=== PATIENT | female | born 1950 | race Caucasian/White ===

== ENCOUNTER 2016-08-21 06:18 | Inpatient (IN) | payer MEDICARE ==
[2016-08-21] VITALS (26 sets, daily range): BP systolic 101–148; BP diastolic 67–106; PULSE 78–100; RESP 12–20; O2SAT 88–98
[~2016-08-21] VITALS: Ht 157.5 cm; Wt 52.5 kg
--- NOTE | 2016-08-21 06:09 | ED.REPORT ---
HPI-Chest Pain 40 and Over Date of Service Aug 21, 2016 ED Provider: Mark Jay Patient is a 65 year old female with a cardiac history who presents to the ED via EMS complaining of sudden onset chest pain at 0515 this morning that woke her. Her pain radiates to her L arm. Associated symptoms include SOB, nausea, and vomiting (since resolved). Per daughter, she had a colonoscopy 4 days ago with a polypectomy. She was put on prednisone and reports that her first dose was taken yesterday. She was given Aspirin and Nitro x3 en route with only mild relief. She had not had her morning medications prior to arrival. Nursing Notes Stated Complaint: CHEST PAIN Nursing Notes Reviewed: Yes Allergies: Coded Allergies: No Known Allergies (Unverified Allergy, Unknown, 08/21/16) Scheduled Aspirin-Expunged Drug, Do Not Renew! (Aspirin-Expunged Drug, Do Not Renew!) 325 Mg Tablet 325 MG AD AM Atorvastatin-Expunged Drug, Do Not Renew! (Atorvastatin-Expunged Drug, Do Not Renew!) 40 Mg Tablet 40 MG PO DAILY Clopidogrel-Expunged Drug, Do Not Renew! (Plavix-Expunged Drug, Do Not Renew!) 75 Mg Tablet 75 MG PO DAILY Diltiazem-Expunged Drug, Do Not Renew! (Diltiazem CD-Expunged Drug, Do Not Renew !) 300 Mg Capsule 300 MG PO DAILY Miscellaneous Medications ([Vit D]) Fish Oil-Expunged Drug, Do Not Renew! (Fish Oil-Expunged Drug, Do Not Renew!) Cap General Time Seen by MD: 06:24 Chief Complaint Chest pain Hx Obtained From: Patient, EMS Arrived By: Ambulance Sudden in Onset?: Yes Onset Occurred: 1 - 4 hours ago Symptom Duration: Since onset Quality: Painful Radiation: : Arm left Severity: Current: Pain level 7 out of 10 Severity: Maximum: Pain level 10 out of 10 Recent Healthcare: Recent doctor visit Similar Sx Previous: Yes Past Medical History Past Medical History [place] x2 arthritus Reports: Asthma, COPD, Hypertension Past Surgical History Stents x2 Colonoscopy with polypectomy Smoking History Current Every Day Smoker Social History Alcohol Use: "Social" Ambulatory Status Independent Review of Systems Constitutional: Denies: Chills, Fever Respiratory: Reports: Shortness of breath Cardiovascular: Reports: Chest pain GI: Reports: Nausea, Vomiting Musculoskeletal: Reports: Extremity pain (L arm ) Neurologic: Denies: Change LOC, Headache, Lightheaded Complete sys rev & neg: except as marked. Physical Exam Initial Vital Signs Vital Signs (First) Date Time Temp Pulse Resp B/P Pulse Ox O2 Delivery O2 Flow Rate FiO2 08/21/16 06:23 36.2 100 20 148/106 95 Room Air 08/21/16 06:57 2 Initial VS: Reviewed Head / Eyes: Atraumatic, Normocephalic Neck: Full range of motion Skin: Warm, Dry Neurologic: Alert, Oriented General/Constitutional: Awake, Alert, Well developed Distress / Hydration: Positive: Distress moderate Wheezing / Retractions: Positive: Wheezing expiratory Cardiovascular: Regular rhythm, Heart sounds NL, Peripheral circulation NL Heart Rate / Rhythm: Positive: Tachycardia 2+ radial pulses Abdomen: Atraumatic, Soft, Non-tender No abdominal scar Neck: No JVD Interpretation & Diagnostics Lab Results Interpretation Result Diagram: 08/21/16 0625 08/21/16 0625 Test 08/21/16 06:25 White Blood Count 16.0th/mm3 (3.8-10.1) Red Blood Count 4.31mil/mm3 (3.90-5.20) Hemoglobin 15.5g/dL (12.0-15.6) Hematocrit 43.8% (35.0-46.0) Mean Corpuscular Volume 101.6fL (81-100) Mean Corpuscular Hemoglobin 36.0pg (27.0-35.0) Mean Corpuscular Hemoglobin Concent 35.4% (32.0-37.0) Red Cell Distribution Width 12.3% (12.3-15.4) Platelet Count 391bil/L (150-400) Neutrophils (%) (Auto) 67.2% (40-74) Lymphocytes (%) (Auto) 18.4% (14-46) Monocytes (%) (Auto) 11.7% (4-12) Eosinophils (%) (Auto) 2.0% (0-5) Basophils (%) (Auto) 0.4% (0-3) Prothrombin Time 9.5sec (8.1-12.5) Prothromb Time International Ratio 0.89ratio Activated Partial Thromboplast Time 22.5sec (22.8-33.0) Sodium Level 138mEq/L (134-144) Potassium Level 3.8mEq/L (3.5-5.2) Chloride Level 100mEq/L (97-108) Carbon Dioxide Level 23mmol/L (18-29) Blood Urea Nitrogen 8mg/dL (8-27) Creatinine 0.69mg/dL (0.57-1.00) Estimat Glomerular Filtration Rate 122mL/min (>59) Glucose Level 151mg/dL (60-99) Calcium Level 9.2mg/dL (8.5-10.1) Magnesium Level 2.0mg/dL (1.6-2.6) Total Bilirubin 0.6mg/dL (0.0-1.2) Aspartate Amino Transf (AST/SGOT) 22U/L (0-50) Alanine Aminotransferase (ALT/SGPT) 15U/L (0-32) Alkaline Phosphatase 90U/L (25-165) Troponin T 0.049ug/L (0.0-0.011) Total Protein 7.6g/dL (6.4-8.4) Albumin 4.2g/dL (3.4-5.0) ECG Interpretation ECG Interpretation: Sinus rate 96 inferior infarct, old anterior infarct, possibly acute Time: 06:24 Interpreted by: ED physician X-Ray Chest Interpretation Chest Xray Interpretation: no abnormalities View: Portable, 1 view Interpretation / Wet Read by: Wet read ED physician Re-Eval/Medical Decision Time of Eval: 06:30 Re-Evaluation/Progress Note: Discussed plan for admission. Patient understands and agrees with plan. Consultation : Referral / Consult Name: Noah Rutherford MD Consulted With: Cardiology Call Returned at: 06:30 Blueprint Assembler: Will see patient, Agrees with eval, Agrees with plan, Accepts admit Note: Discussed patient's case. Will see patient. Counseled Regarding: Diagnosis, Lab results, Need for admission Discharge & Departure Primary Impression: STEMI (ST elevation myocardial infarction) Disposition: ADMITTED TO HOSPITAL Referrals: Brielle Adler PA-C (PCP) Crit Care Except Billable Proc Time Spent: 30-74 minutes Services Performed: Patient management by me, Time spent at bedside, Reviewing test results Critical Care Notes: See MDM, STEMI, IV heparin, IV nitroglycerin, IV metoprolol Scribe Attestation Portions of this note were transcribed by Dinesh Padilla. I, Dr. Flores personally performed the history, physical exam and medical decision-making; I reviewed and confirmed the accuracy of the information in the transcribed note. Signed by: Dinesh Padilla 08/21/16, 0910 copies to: Brielle Adler PA-C, Timothy S DO Aug 21, 2016 06:09 DINESH PADILLA Aug 21, 2016 06:33
[~2016-08-21 06:18] MED LIST: ASPI-351 AD; CLOP75TA14 PO; FISH; Heparin 25,000 Unit/500 mL 0.45% NS Premix IV ONE; LIP40 PO; MeTOProlol 1 mg/mL 5 mL Inj ONE; Nitroglycerin 2% 1 Gm Ointment TOPICAL ONE; Nitroglycerin 50,000 mcg/250 mL D5W Premix IV ONE; VIT D PO; [UNRECOGNIZED DRUG - CODE] PO
[2016-08-21] MEDS ORDERED: Ondansetron 2 mg/mL 2 mL Inj ONE (06:19)
[2016-08-21] MEDS ORDERED: Heparin 5,000 Unit/mL Inj ONE (06:20)
[2016-08-21] MEDS ORDERED: NITROGLYCERIN SL ONE (06:20)
[2016-08-21] MEDS ORDERED: Heparin 1,000 Units/500 mL NS Premix IV ONE (06:28)
[2016-08-21] MEDS ORDERED: 0.9% Sodium Chloride 0 ML ONE (06:28)
[2016-08-21] MEDS ORDERED: Heparin 1,000 Unit/mL 10 mL Inj ONE (06:28)
[2016-08-21] MEDS ORDERED: Heparin 5,000 Units/500 mL NS Premix IV ONE (06:28)
[2016-08-21] MEDS ORDERED: Phenylephrine/NS-PF 100 mCg/mL 5 mL Syringe IVPUSH ONE (06:28)
[2016-08-21] MEDS ORDERED: Nitroglycerin 50,000 mcg/250 mL D5W Premix IV ONE (06:28)
[2016-08-21] MEDS ORDERED: Atropine 1 mg/10 mL (Code) Syringe ONE (06:28)
[2016-08-21 06:35] LABS: BASOPHILS % (AUTO) 0.4 % (0-3); MONOCYTES % (AUTO) 11.7 % (4-12); Mean Corpuscular Volume 101.6 fL (81-100); NEUTROPHILS % (AUTO) 67.2 % (40-74); Platelet Count 391 bil/L (150-400)
[2016-08-21 06:54] LABS: INR 0.89 ratio
[2016-08-21] MEDS ORDERED: fentaNYL-PF 50 mCg/mL 2 mL Inj ONE ×2 (06:59→08:55)
[2016-08-21 07:59] LABS: TROPONIN T 0.049 ug/L (0.0-0.011)
[2016-08-21] MEDS ORDERED: Furosemide 10 mg/mL 2 mL Inj ONE (08:39)
--- NOTE | 2016-08-21 09:09 | DRSVH ---
PROCEDURE: X-RAY CHEST ONE VIEW, PORTABLE ([id number]) INDICATIONS: STEMI TECHNIQUE: One view of the chest was acquired. COMPARISON: [facility], , CHEST 1VW (PORTABLE), 10/25/2010, 19:27. FINDINGS: Surgical changes and devices: None. Lungs and pleura: No pleural effusions or pneumothorax. Lungs are clear. Mediastinum: Mediastinal contours appear normal. Heart size is normal. Bones and chest wall: Convex-right scoliosis. No suspicious bony lesions. Overlying soft tissues ap pear unremarkable. IMPRESSION: No acute cardiopulmonary disease process. Dictated by: Melisa Ortiz MD, PhD on 08/21/2016 at 9:05 Approved by: Melisa Ortiz MD, PhD on 08/21/2016 at 9:05
[2016-08-21] MEDS ORDERED: 0.9% Sodium Chloride 1,000 ML IV PRN ×2 (09:45→20:35)
[2016-08-21] MEDS ORDERED: Ondansetron 2 mg/mL 2 mL Inj IVPUSH PRN ×2 (09:45→12:15)
[2016-08-21] MEDS ORDERED: 0.9% Sodium Chloride 250 ML IV PRN (09:45)
[2016-08-21] MEDS ORDERED: 0.9% Sodium Chloride 1,000 ML ONE (09:51)
[2016-08-21] MEDS ORDERED: ASPI-973 PO (10:06)
[2016-08-21] MEDS ORDERED: DILT300C50 PO (10:11)
[2016-08-21] MEDS ORDERED: LIP40 PO (10:11)
[2016-08-21] MEDS ORDERED: ALBU90AE IH (10:14)
[2016-08-21] MEDS ORDERED: ZLP10T PO (10:14)
[2016-08-21] MEDS ORDERED: BECL8.7A6 INHALATION (10:15)
[2016-08-21] MEDS ORDERED: TIOT18CA3 IH (10:17)
[2016-08-21] MEDS ORDERED: DULO30CA50 PO (10:17)
--- NOTE | 2016-08-21 12:00 | NUR ---
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 Sheath pulled at bedside, manual pressure held. R groin site is soft/nontender, no s/s of hematoma, pulses are equal and strong. Pt a/o x3, bedrest until 1530 per Cardiology. Pt on Nitro gtt r/t ongoing chest discomfort, MD aware, ECG obtained and reviewed by Cardiology. Pt reports hx of drinking several beers/day, no s/s of alcohol withdrawal noted at this time. Family at bedside, updated on condition/plan of care. Care ongoing.
[2016-08-21] MEDS ORDERED: 0.9% Sodium Chloride 1,000 ML IV SCH (12:14)
[2016-08-21] MEDS ORDERED: Senna-Docusate 8.6-50 mg Tablet PO PRN (12:15)
[2016-08-21] MEDS ORDERED: Polyethylene Glycol (PEG) 17 Gm Powder PO PRN (12:15)
[2016-08-21] MEDS ORDERED: Sodium Chloride LOK Flush 10 mL Syringe IVFLUSH PRN (12:25)
[2016-08-21] MEDS ORDERED: Atropine 1 mg/10 mL (Code) Syringe IVPUSH PRN (12:25)
--- NOTE | 2016-08-21 12:50 | CONS ---
[address] [address] CONSULTATION REPORT PATIENT: NIRANJAN BUSTOS : 1950 MR#: [id number] ADMIT: 08/21/2016 JOB ID: [id number] DATE OF CONSULTATION: Sunday, August 21, 2016 CONSULTING PHYSICIAN: Cardiology--Noah Rutherford MD. REQUESTING PHYSICIAN: Willis Burgos MD CARDIOLOGY CONSULTATION--INITIAL CRITICAL CARE EVALUATION(EMERGENCY DEPARTMENT): PROBLEM LIST: 1. ACS (acute coronary syndrome). a. STEMI (acute anterior myocardial infarction). 2. CAD (coronary artery disease). a. PCI (percutaneous coronary intervention)--LAD; remote past; probably in [place]. Long stented segment of Proximal and Mid LAD. b. PCI Mid LAD; October 2010 for ACS. Xience 2.75 x 8 mm stent placed at the distal edge of the prior stent. CAD Risk Factors: a. Hypertension. b. Hyperlipidemia--Status not available. c. No history of diabetes. d. Current cigarette smoking. e. Family history--Status not available. OTHER PROBLEMS: 1. "Severe depression." 2. COPD: Note recent exacerbation. Prednisone initiated two days prior to this admission. 3. Diarrhea: History of recent chronic diarrhea. Note associated colonoscopy recently with removal of polyp and pathology is not yet available. CHIEF COMPLAINT: 1. Chest pain. 2. STEMI. Anterior ST elevation on the ECG. HISTORY OF PRESENT ILLNESS: This 64-year-old woman presented to the emergency department early this morning by EMS 2 hours after the onset of severe retrosternal chest pressure "like an elephant." She is uncomfortable and not able to give much history. The daughter was able to supplement the history somewhat. The discomfort today is not associated with radiation or other associated symptoms. She is not short of breath. From a cardiac point of view I understand the patient has been without overt cardiac symptoms recently. She did have some chest discomfort that was not exertional, and was felt to be related to an exacerbation of her chronic obstructive pulmonary disease for which prednisone was initiated two days ago. She did have some cough but no fever or chills. In general she is not much active except with activities around the house; and with this she is limited by exertional dyspnea. She has not recently had exertional angina otherwise. I do not elicit a history suggestive of heart failure including nocturnal dyspnea or edema. She reports no history of arrhythmia, or arrhythmic symptoms such as tachy palpitations, presyncope, or syncope. Regarding other possible underlying vascular disease, there is no history of CVA or current symptoms of TIA. No apparent claudication. Regarding possible dual antiplatelet therapy, she reports no current bleeding symptoms, no anticipated upcoming surgery, and she thinks she would be reliable to take mandatory medicines if needed. ALLERGIES: No known drug allergies. She does not think she is allergic to x-ray dye or seafood fish or iodine. MEDICATIONS: 1. Beclomethasone inhaler. 2. Spiriva inhaler. 3. Aspirin 81 mg daily. 4. . 5. Fluoxetine. No statin; this may have been stopped because of her diarrhea. PAST SOCIAL HISTORY: As above; otherwise, she does not report other treated illnesses. REVIEW OF SYSTEMS: I questioned her in the emergent setting, and later her daughter, regarding a 13-point review of systems which is unremarkable, noncontributory, and negative except as noted including: No history of thyroid disorder. COPD: She has had asthma and prolonged bronchitis symptoms, but in the remote past. In general, she does not report frequent bronchitis or prolonged chest colds. Recent diarrhea but otherwise no history of GI disorder including hepatitis, jaundice, ulcers, and indigestion. PERSONAL AND SOCIAL HISTORY: Cigarettes: 1/3 pack a day currently, and she has smoked for as much as 50 years. Alcohol: "Alcoholic." Daughter says there were two beers on the kitchen counter in her house this morning. Other drugs: She had a roommate recently who used methamphetamine. The daughter thinks it is not excluded that she may have been exposed to methamphetamine. She lives in her own home with a roommate. FAMILY HISTORY: Noncontributory. PHYSICAL EXAMINATION: General appearance: Elderly-appearing woman who appears considerably older than her stated age. She is uncomfortable, with chest discomfort, and hyper reactive to any discomfort. Vital signs: Blood pressure 115/80, heart rate 75 and regular, in sinus rhythm on telemetry. Respiratory rate 20 and unlabored, with O2 saturation 95% on supplemental oxygen. Neurologic and mental status: No overt focal neurologic defect noted. She is alert, oriented, appropriate, and conversant. HEENT: PERRL. Conjunctivae pink. Sclerae not icteric. Mouth and mucous membranes intact. Neck: Carotid upstroke intact bilaterally, without bruit. Jugular venous pressure unremarkable examined supine. No palpable thyromegaly. No palpable cervical lymphadenopathy. Lungs: Diminished breath sounds bilaterally examined supine. No wheezes. Cardiac: Heart examination notable for S4. There is no loud murmur. Abdomen: Unremarkable abdominal examination. Without tenderness, mass, hepatosplenomegaly, or bruit of abdominal aortic aneurysm. Extremities: No edema. Pedal pulses are difficult to feel bilaterally, except the right dorsalis pedis is present softly. DIAGNOSTIC STUDIES: Electrocardiogram: The ECG is limited by marked artifact. There is ST elevation in the mid precordial leads V2 through V4. Chest x-ray: Chest x-ray not available for review. Report is unremarkable from a cardiac point of view. Laboratory: Laboratory not initially available. Later CBC includes WBC elevated at 16,000 with 67% neutrophils, as well as hemoglobin 15.5, hematocrit 43.8, and platelet count 291,000. INR 0.89. Chemistries include potassium 3.8, BUN 8, creatinine 0.69, glucose 151, magnesium 2.1. Unremarkable LFT. Elevated troponin 0.049 already. ASSESSMENT: I discussed my findings, impressions, and management considerations with the patient and her Daughter, as well as with the admitting Hospitalist Service, and Cardiology including: Acute coronary syndrome--ST-elevation myocardial infarction: Acute anterior myocardial infarction. She presents with severe atypical chest pain and abnormal ECG indicative of anterior myocardial infarction. I discussed the recommendation to proceed to emergent coronary angiogram and anticipated primary percutaneous coronary intervention for likely left anterior descending occlusion. She is otherwise clinically stable initially. RECOMMENDATION: 1. Coronary angiogram and treatment as needed including anticipated primary percutaneous coronary intervention--Emergent. 2. Echocardiogram. 3. Admit to the Hospitalist for management of comorbidities including apparent severe COPD with recent COPD exacerbation started on prednisone. 4. OMT. Guideline directed optimal medical therapy for her coronary disease including aspirin, anticipated Plavix, as well as beginning beta-logan later and consideration of MATHEUS inhibitors. Important to reinitiate statin. MTDD
--- NOTE | 2016-08-21 13:26 | CS94 ---
[address] [address] DIAGNOSTIC CARDIAC CATHETERIZATION PATIENT: NIRANJAN BUSTOS : 1950 MR#: [id number] ADMIT: 08/21/2016 JOB ID: [id number] PROCEDURE NOTE--CARDIAC CATHETERIZATION LABORATORY: DATE OF PROCEDURE: Sunday, August 21, 2016. MARINE WATER TENDER: Noah Rutherford MD PROCEDURES: 1. Coronary Angiogram--Emergent. 2. PERCUTANEOUS CORONARY INTERVENTION (PCI): a. PCI of Mid and Proximal LAD--Xience 2.5 x 38 mm ARELI; and Xience 2.75 x 12 mm ARELI(overlapping proximally). CLINICAL DETAILS: This 64-year-old woman with known coronary disease presented to the Emergency Department(ED) by EMS this 6 a.m. after 2 hours of severe retrosternal chest pressure. ECG showed anterior ST elevation in the mid precordial leads. Her prior known coronary disease comprises a remote Proximal LAD Stent that may have been done in [place], [place]. Then in 2010 she had a short stent placed at the distal edge of the previous stent. Coronary risk factors include continued cigarette smoking. PROCEDURAL DETAILS: I evaluated her emergently; and discussed with her the recommendation to proceed with emergent coronary angiogram, and anticipated primary PCI for Anterior STEMI. I discussed the procedure, including possible risks and complications expeditiously in the emergent setting with her; and also with her Daughter. They are aware that she has a life-threatening illness with expected benefit from the procedure and also possible multiple complications including bleeding, heart attack, stroke, , and Others. After questions and discussion, she signed informed consent to proceed. Prior to the catheterization she had been treated with Aspirin, Heparin bolus, and had been given Plavix 600 mg p.o. in the ED. CORONARY ANGIOGRAM: Arterial access was obtained without difficulty in the right common femoral artery using fluoroscopic localization over the femoral head and modified Seldinger technique to insert a 6-Australian 10 cm side-arm sheath. Catheters were advanced and exchanged over a long 0.035 inch J-tipped Guidewire. Marked tortuosity of the entire aorta was noted. First Right Coronary angiogram was obtained using a 6-Australian JR-4 diagnostic catheter; then Left Coronary ngiogram was done using a 6-Australian JL-4 guide catheter. LV not entered. PCI OF THE MID AND PROXIMAL LAD: The diagnostic images were reviewed; and decision is made to proceed with emergent primary PCI to revascularize the occluded Mid LAD (MAURICIO-0 flow), which is occluded in the previously stented segment. The 6-Australian JL-[address] was used for Intervention. The occlusion was crossed with a BMW Wire--0.014 inches x 190 cm--which was placed in the distal LAD. PREDILATATION: The LAD was opened with several inflations of a Trek Balloon-- 2.5 x 15 mm--inflated several times to a maximum 8 atmospheres across the initial site of occlusion, and in the subsequent visualized areas of severe stenosis. The artery was improved with flow in the LAD. STENTS: After the artery was opened, several areas of disease requiring treatment are seen, including at the distal stent edge and within the stent, and also a focal moderate lesion at the proximal edge of the initially placed long stent. I elected to treat the entire diseased area. A Xience ARELI (Drug-Eluting Stent)-- 2.5 x 38 mm--was inserted distally, and deployed at 18 atmospheres covering from distal to the previously placed stents into the long previously stented segment. Then a second Xience ARELI--2.75 x 12 mm--was deployed at 18 atmospheres , covering the lesion at the proximal edge of the previously placed stents, including into the proximal near-ostial LAD. POSTDILATATION: The entire stented segment was post dilated with a noncompliant Trek NC Balloon--2.75 x15 mm--inflated to 20 atmospheres several times within the length of the stented segment. Aliquots of NTG IC were used during the procedure as needed. Procedural anticoagulation was obtained with bolus Heparin to achieve a therapeutic ACT. There was a excellent final angiographic result with MAURICIO-3 flow restored; no residual lesions; and no angiographic complication evident. Procedure without difficulty. Patient tolerated procedure well. No complication. At the end of the procedure, the patient was very uncomfortable, including neck pain and back pain, and also some residual chest discomfort. She was monitored in the Catheterization Laboratory until it was clear that she was very stable. ECG was reassuring, showing resolution of ST elevation(Comment: Over time it became evident that her pain was caused by marked point tenderness on the chest wall at the site of the discomfort). A side-arm sheath angiogram showed unusual vascular anatomy, and peripheral vascular disease including a very high bifurcation of the common femoral artery, almost above the superior edge of the of the femoral head. Arterial access was in the profunda artery. There is disease in the SFA. There appear to be collaterals from superiorly as well. Arterial hemostasis is planned by manual closure to be done in the CCU. The patient was transferred stable and more comfortable from the Catheterization Laboratory to the CCU for ongoing care including by the admitting Hospitalist Service. I discussed the procedure, findings, and management considerations with the patient, as well as with her Daughter, and also with the Hospitalist Service, and Cardiology. FINDINGS: 1. LMCA: The Left Main Coronary Artery is a short vessel with no obstructive lesions. 2. LAD: The LAD is a moderate size transapical vessel. Initially the Mid LAD is occluded. There is a long previously stented segment from the Proximal LAD to past the first Diagonal which is a small vessel ( less than 2 mm). After the LAD is opened note there is a 60% focal lesion at the proximal stent edge of the long previously stented segment. There is at least moderate diffuse in-stent narrowing throughout the length of the stents. The point of occlusion is within stent. When the artery is opened there is severe disease from the 3rd diagonal (distal to the stented segment) back to the point of occlusion with 95% diffuse narrowing. The Distal LAD is intact, and would be a good target for bypass. Diagonal-1 is severely diseased with a severe focal ostial lesion and only MAURICIO-2 flow. It is a small vessel emanating from a segment with overlapping layers of stents. I elected not to try to preserve this vessel. It became occluded after insertion of the stent without any sequelae, chest pain, or ECG changes. It was seen to fill retrograde by the end of the procedure. 3. LCX: The left circumflex coronary artery is nondominant. Its distribution consists of one large OM branch; and there is no angiographic obstructive lesion. 4. RCA: Dominant. Moderate sized. No obstructive disease. CONCLUSIONS: 1. PCI: Two Xience ARELI placed to revascularize occluded culprit Mid LAD In-Stent stenosis. 2. Acute Coronary Syndrome (ACS): STEMI (ST-elevation myocardial infarction). 3. Coronary Artery Disease (CAD): Single-vessel CAD of the Proximal and Mid LAD with a long segment of Proximal and Mid LAD now stented for the 3rd time. RECOMMENDATIONS: 1. ECASA--Indefinitely. 2. Plavix. Plan Plavix if well tolerated for one year with ongoing cardiology follow-up. I discussed with the patient and Daughter not to stop Plavix for any reason without immediate Cardiology consultation. Strongly consider lifetime Plavix given the extensive Intervention on the LAD. 3. Echocardiogram. 4. Cigarette cessation discussed. 5. OMT--Optimal Medical Therapy: Guideline directed optimal medical therapy. 6. Note Peripheral vascular disease (PVD). Would assess the question raised regarding peripheral vascular disease of the right lower extremity. MTDD
--- NOTE | 2016-08-21 13:27 | DRSVH ---
[facility] [address] [place] [address] Echocardiogram Report Name: NIRANJAN BUSTOS Tate e: 08/21/2016 Height: 61 in Hospital Exam Location: [facility] Weight: 117 lb Gender: Other BSA: 1. 5 m2 : 1950 Age: 65 yrs BP: 119 /77 mmHg Reason For Study: STEMI Ordering Physician: HOSPITALIST [facility] Performed By: Dolores Perry Referring Physician: CRIS SMITH Interpretation Summary 1) Normal left ventricular thickness and size with moderately reduced function (EF 35-40%). 2) Mid to distal septum, distal anterolateral wall, distal inferior wall, and distal anterior wall are akinetic. The apex is dyskinetic. 3) Normal right ventricular size and function. 4) No significant valvular abnormalities. 5) No prior Echo available for comparison. Procedure: A two-dimensional transthoracic echocardiogram with color flow and Doppler was performed in limited views only. Image quality is poor. The patient is supine during the test due to s/p heart cath. A contrast injection of Definity was performed to improve assessment of LV function. A total of 3 cc of contrast was given. Contrast was injected into an intravenous site in the left arm. There is no prior echocardiogram noted for this patient. The patient was in sinus during the exam. Left Ventricle: The left ventricle is normal in size. There is normal left ventricular wall thickness. Left ventricular systolic function is moderately reduced. The ejection fraction is estimated to be 35-40%. There is apical akinesis. Mid to distal septum, distal anterolateral wall, distal inferior wall, and distal anterior wall are akinetic. The apex is dyskinetic. Assessment of diastolic parameters indicates a relaxation abnormality of the left ventricle, consistent with normal filling pressures. Right Ventricle: The right ventricle is normal in size and function. Atria: Both atria are normal in size. There is no Doppler evidence for an atrial septal defect. Mitral Valve: The mitral valve is not well visualized. There is mild mitral regurgitation. Aortic Valve: The aortic valve is not well visualized. The aortic valve opens well. There is no aortic valve stenosis. There is trace aortic regurgitation. Tricuspid Valve: The tricuspid valve is not well visualized, but is grossly normal. There is moderate tricuspid regurgitation. The right ventricular systolic pressure is estimated at 26 mmHg assuming a right atrial pressure of 3 mm Hg. Pulmonic Valve: The pulmonic valve is not well visualized. There is no pulmonic valvular regurgitation. Great Vessels: The aortic root is normal size. The ascending aorta could not be visualized. The pulmonary artery is not well visualized, but is probably normal size. The IVC is of normal diameter and collapses greater than 50% with a sniff. This suggests a low right atrial pressure of 3 mm Hg. Pericardium/ Pleura There is no pericardial effusion. There is no pleural effusion. MMode/2D Measurements & Calculations LVIDd: 4.3 cm LA dimension: 3.2 cm RA long axis LVOT diam LVIDs: 2.9 cm FS: 31.7 % LA A2 area: 14.6 cm RA area Ao root diam IVSd: 0.72 cm LA A4 area: 15.7 cm : 3.1 cm LVPWd: 0.85 cm LA length (vol): 4.4 cm : 13.9 cm LA vol: 43.8 ml RA vol: 39.9 ml LA vol index RA : 26.5 mm2 IVC diam: 1.1 cm LV rosales. diameter/BSA LV sys. diameter/BSA (cm/m^2): 2.9 (cm/m^2): 1.9 Doppler Measurements & Calculations Ao V2 max MV E max tang MV E/A: 1.2 TR max tang : 79.5 cm/sec : 66.7 cm/sec Med Peak E' Tang : 239.0 cm/sec Ao max PG MV A max tang TR max PG : 2.5 mmHg : 57.7 cm/sec E/E' med: 13.8 : 22.8 mmHg Ao mean PG MV P1/2t: 49.6 msec Lat Peak E' Tang PA V2 max : 60.3 cm/sec LVOT Max Tang E/E' lat: 7.9 PA mean PG : 78.9 cm/sec Pulm A Revs Dur : 0.79 mmHg TAHIRA(I,D) PA Accel Time MV A dur: 0.10 sec : 0.11 sec : 2.6 cm2 sev ratio MV dec time MV P1/2t max tang Ao V2 mean LV V1 max PG : 0.17 sec : 62.5 cm/sec MVA(P1/2t): 4.4 cm2 Ao V2 VTI: 18.4 cm LV V1 VTI TAHIRA(V,D): 3.2 cm2 : 14.7 cm PA V2 mean TAHIRA indexed to BSA Pulm A Revs Dur - MV : 42.1 cm/sec (cm^2/m^2): 1.7 A Dur: 0.04 msec Reading Physician:01:27 PM
--- NOTE | 2016-08-21 14:52 | PCM.HPMED ---
Subjective Date of Service Aug 21, 2016 Primary Provider: Admitting Physician: Noah Rutherford MD Primary Care Physician: Brielle Adler PA-C Attending Physician: Noah Rutherford MD Admit Status: From the Emergency Department, Full Admit, Admit to Yellow Team, Critical Care Chief Complaint: Chest pain, STEMI. Status post stenting to the LAD. Postprocedure left chest pain History of Present Illness: This is a 65-year-old female brought to the ER by ambulance for acute crushing chest pain which awoke her at 5:15 AM. The pain did not radiate to the neck or arm. She had associated nausea vomiting dyspnea and diaphoresis. In the ED she was identified with an acute STEMI and taken to the mechanical shop laborer. Dr. Rutherford performed an acute coronary angiogram and ultimately stented a critical LAD lesion. Postprocedure she did have chest pain. This was more positional and did not increase with palpation. This was treated with Toradol. She denies a recent cough. Of note is a long history of alcohol abuse as well as smoking and tobacco dependence. She smokes 4-10 cigarettes a day. She notes about 4 beers in a days' time but not all days and denies a history of alcohol withdrawal symptoms. Review of Systems: She denies headache or hearing loss. No rhinorrhea cough or sore throat. No recent hemoptysis Her abdominal pain no nausea or vomiting. Also reviewed except as noted in history of present illness Allergies Coded Allergies: bupropion (Verified Allergy, Unknown, 08/21/16) Home Medications Aspirin-Expunged Drug, Do Not Renew! (Aspirin-Expunged Drug, Do Not Renew!) 325 Mg Tablet 325 MG AD AM Atorvastatin-Expunged Drug, Do Not Renew! (Atorvastatin-Expunged Drug, Do Not Renew!) 40 Mg Tablet 40 MG PO DAILY Clopidogrel-Expunged Drug, Do Not Renew! (Plavix-Expunged Drug, Do Not Renew!) 75 Mg Tablet 75 MG PO DAILY Diltiazem-Expunged Drug, Do Not Renew! (Diltiazem CD-Expunged Drug, Do Not Renew !) 300 Mg Capsule 300 MG PO DAILY PMH 1. CAD with history of PCI previously and 2 stents.. 2. Tobacco dependence, ongoing smoking. 3. Probable alcohol abuse syndrome 4. Recent colonoscopy with polypectomy. 5. COPD. Surgical History Coronary stenting 2, recent colonoscopy with polypectomy 4 days ago Family History Positive for CAD Social History Hx Alcohol Use: Yes Alcoholic Drinks Per Day: 3-4 beers per day most days Hx Substance Use: No Hx Tobacco Use: Yes Smoking Status: Current Every Day Smoker Living Arrangement: Alone Exam Vital Signs Vital Sign - Last Date Time Temp Pulse Resp B/P Pulse Ox O2 Delivery O2 Flow Rate FiO2 08/21/16 14:00 85 14 120/78 08/21/16 13:00 36.7 97 Nasal Cannula 2.00 Exam Alert oriented 3, no distress. Fluent speech. Normal skeletal. Normal nose and ears Anicteric sclerae, symmetric pupils. Oropharynx unremarkable no droop. Neck supple. Normal thyroid. No adenopathy. Lungs are clear, normal effort. Heart is regular without murmur gallop or rub. Abdomen is soft nondistended focal tenderness guarding or rebound. Extremities are free of edema. Radial and pedal pulses. Joints not swollen or deformed. Skin free of rashes, lesions or petechiae. Cranial nerves are intact. Lab and Diagnostics Result Diagram: 08/21/1662408/21/16624 X-Rays, CTs and MRIs Chest x-ray is unremarkable 12-lead ECG Normal sinus rhythm with inferior ST segments in the lateral leads, time is 10: 24 AM Cardiac Echo Impressions LVEF of 3035%, with a flat apical distal wall. Assessment & Plan 1. STEMI. POA. The patient has undergone stenting of the LAD. Discussed the case with Dr. Rutherford. She will be placed on dual antiplatelet therapy, beta blockade as well as statin therapy. 2. Chest wall pain. POA. Feels this does not represent postprocedure ischemia. We will treat supportively with analgesics. He has requested a dose of Toradol. 3. Tobacco dependence. POA. Patient declines a nicotine patch. 4. Possible alcohol abuse syndrome. POA. Denies withdrawal symptoms in the past. Follow clinically. 5. Recent colonoscopy and polypectomy. POA. Stable. Follow for clinical evidence of rectal bleeding although there is no history of. Patient is full resuscitation discussed with patient today Length of stay is over 2 nights, inpatient status Pain Evaluation: Adequate Pain Control Resuscitation Status: CPR: Attempt Resuscitation Time spent 45 minutes Willis Burgos MD Aug 21, 2016 14:52
[2016-08-21] MEDS ORDERED: Ketorolac 15 mg/mL Inj IVPUSH ONE (17:00)
--- NOTE | 2016-08-21 18:29 | NUR ---
DOWNGRADE TO PCC Patient's vitals stable since arrival to unit, although she continues to report chest heaviness/pressure, no relief w/ Nitro gtt. Dr. Burgos and Dr. Rutherford aware of this ongoing discomfort, Toradol ordered for one-time dose, and patient reports some relief. Orders received for patient to downgrade to PCC status w/ tele. Groin site is C/D/I, no drainage noted, no bruising or hematoma present. Patient does report tenderness distal to site, but only w/ palpation. Will continue to monitor rhythm, vitals and groin site.
[2016-08-21] MEDS ORDERED: Albuterol 2.5 mg/3 mL Inhalation Solution NEB PRN (20:40)
[2016-08-21] MEDS: Heparin 5,000 Unit/mL Inj SUBQ SCH (20:54)
[2016-08-21] MEDS: MethylprednisoLONE Sodium Succinate 62.5 mg/mL 2 mL Inj IVPUSH SCH (20:56)
[2016-08-21] MEDS: Albuterol-Ipratropium 3 mL Inhalation Solution NEB SCH (21:36)
[2016-08-22] VITALS (12 sets, daily range): BP systolic 101–123; BP diastolic 50–83; PULSE 71–112; RESP 16–19; O2SAT 88–96
[2016-08-22] MEDS: Albuterol-Ipratropium 3 mL Inhalation Solution NEB SCH ×6 (00:30→21:17)
--- NOTE | 2016-08-22 00:35 | NUR ---
[id number] pt assessment done, orders received from telecommunication lines repairer and hospitalist, report given to pcc rn, pt on tele to [facility] room 2030, pt a/o times three, anxious, villagomez, right groin cdi, no bleeding, no hematoma, pulses present, good uop per f/c, pt ate approx 50 % of her dinner, pt states she felt hungry but then could not eat much, orders from hospitalist to keep ns at 50ml/hr, urine spec sent to lab for tox screen, denies n/v, bt present, abd round/snt, no bm, ls- insp and exp wheezes t/o, hob up, resp rate= 20, sats on two liters nc=94%, md aware of pts home meds of prednisone and inhalers, not sure of prednisone dose, hospitalist ordered inhalers and solumedrol and ambien for anxiety, tele- sr, bp stable, afebrile, pt c/o midsternal chest pressure that appeared to get worse when pt leaned forward for ausculation of lung sounds, pt c/o increase in discomfort when pressure applied to sternal area, appears musculoskeletal, telecommunication lines repairer aware and states ngt gtt does not need to continue but to check with hospitalist, hospitalist aware of assessment and what telecommunication lines repairer states and ntg gtt discontinued, pt transferred to [facility] tele, room 2030 at approx 2030,
[2016-08-22 05:28] LABS: BASOPHILS % (AUTO) 0.1 % (0-3); EOSINOPHILS % (AUTO) 0 % (0-5); MONOCYTES % (AUTO) 1.1 % (4-12); Mean Corpuscular Hemoglobin 34.9 pg (27.0-35.0); Mean Corpuscular Volume 103.5 fL (81-100); NEUTROPHILS % (AUTO) 93.5 % (40-74); Platelet Count 295 bil/L (150-400)
[2016-08-22] MEDS: MethylprednisoLONE Sodium Succinate 62.5 mg/mL 2 mL Inj IVPUSH SCH ×3 (05:44→21:37)
[2016-08-22] MEDS: Alum-Mag Hydrox-Simeth 30 mL Suspension PO PRN ×2 (05:47→20:15)
[2016-08-22] MEDS: Heparin 5,000 Unit/mL Inj SUBQ SCH ×2 (09:15→21:39)
[2016-08-22] MEDS: Tiotropium 18mcg/Cap 5 Capsule Inhaler Kit INHALATION SCH ×2 (13:00→13:23)
[2016-08-22] MEDS: Fluticasone 100 mCg Inhaler INHALATION SCH ×2 (13:23→21:39)
[2016-08-22] MEDS: DULoxetine 30 mg DR Capsule PO SCH (13:39)
--- NOTE | 2016-08-22 14:32 | PCM.PNMED ---
Subjective Date of Service Aug 22, 2016 Subjective She is doing fairly well today. Her left upper thorax pain which is mostly positional is improved dramatically. Her dyspnea is about the same. She does have a lot of wheezing and was placed on Cytomel Medrol yesterday. She has a dry cough. No nausea vomiting or abdominal pain. No diaphoresis or leg edema Exam Vital Signs Vital Sign - Last Date Time Temp Pulse Resp B/P Pulse Ox O2 Delivery O2 Flow Rate FiO2 08/22/16 12:45 36.7 111 16 107/65 Room Air 08/22/16 11:37 93 08/22/16 07:40 1.00 Intake and Output 08/21/16 08/21/16 08/22/16 Cumulative From/Thru 15:00 23:00 07:00 08/21/16 06:23 - 08/22/16 06:33 Intake Total 1124 ml 720 ml 1844 ml Output Total 1700 ml 300 ml 2000 ml Balance -576 ml 420 ml -156 ml Intake Oral 540 ml 600 ml 1140 ml IV Total 584 ml 120 ml 704 ml Output Urine Total 1700 ml 300 ml 2000 ml # Bowel Movements 0 0 Exam Alert oriented 3 no distress. Fluent speech. Normal skull Anicteric sclerae, pink neck supple normal JVP Lungs scattered rhonchi and 2/4 breath sounds and scattered rhonchi and expiratory wheezing and prolonged expiratory phase Heart is regular without murmur gallop or rub Abdomen soft nondistended. Extremities are free of edema. Good pedal pulses. IVs and Medications Medications Reviewed: Medications were reviewed in detail Lab and Diagnostics Result Diagram: 08/22/16 0510 08/22/16 0510 X-Rays, CTs and MRIs Chest x-ray is unremarkable 12-lead ECG Normal sinus rhythm with inferior ST segments in the lateral leads, time is 10: 24 AM Cardiac Echo Impressions LVEF of 3035%, with a flat apical distal wall. Assessment & Plan 1. STEMI. POA. The patient has undergone stenting of the LAD. Discussed the case with Dr. Rutherford. She will be placed on dual antiplatelet therapy, beta blockade as well as statin therapy. No changes to her medical regimen at this time. 2. Chest wall pain. POA. Feels this does not represent postprocedure ischemia. We will treat supportively with analgesics. This is improved substantially. 3. Tobacco dependence. POA. Patient declines a nicotine patch. 4. Possible alcohol abuse syndrome. POA. Denies withdrawal symptoms in the past. Follow clinically. No evidence of withdrawal issues. 5. Recent colonoscopy and polypectomy. POA. Stable. Follow for clinical evidence of rectal bleeding although there is no history of. 6. Possible acute COPD exacerbation. POA. Will continue Solu-Medrol and bronchodilator treatments for an additional day. 7. Mild debilitation. POA. Physical therapy evaluation today. Patient is full resuscitation discussed with patient today Length of stay is over 2 nights, inpatient status Resuscitation Status: CPR: Attempt Resuscitation Time spent 30 minutes Willis Burgos MD Aug 22, 2016 14:32
--- NOTE | 2016-08-22 15:24 | NUR ---
Evaluation completed. Please go to "Notes" then click on "Assessments and Notes" (bottom left corner of screen). Then select appropriate discipline tab on top of screen.
--- NOTE | 2016-08-22 17:00 | NUR ---
Social Work Note: Initial Assessment Data& Assessment: EMR reviewed. SW met with pt at bedside to discuss discharge planning, SW role explained. Nadia Pedro is a 65 year old female admitted on 08/21/2016 for Chest pain. Pt has Medicare insurance coverage and sees Brielle Adler for primary care. Pt lives in [place] alone and is independent at baseline. Pt denies any HH or SNF hx. Pt denies any DME use. Pt denies LTC insurance or VA benefits. Pt drives at baseline. Pt has DPOA paperwork completed, SW requested copy of paperwork for her chart. Pt confirmed one of her children will be able to transport her home when medically ready. PT has cleared pt to go home, no needs. Pt expressed a lot of frustration regarding her hospital stay and requested information on who she should contact. SW provided pt with number to patient relations. Pt denies any other needs at this time. SW to continue to follow if any needs arise. Plan: Anticipated discharge home via POV when medically ready. Pt family to transport home at discharge. Pt denies any other needs at this time. SW to continue to follow if any needs arise. CESAR Kramer Addendum: 08/22/16 at 1707 by TWYLA BARRETO Amended: Links added.
--- NOTE | 2016-08-22 19:19 | NUR ---
Anxiety Pt. states having high anxiety with new diagnosis and being in the hospital. Other precipitating factors are family and pets at home. Pt. has had no pain, Pt. ambulated with PT today in the afternoon and denied SOB. Pt. complains of tightness in chest but not r/t cardiac. Pt, was given 2 Tylenol for headache, right groin where LAD was placed has slight bruising but no draining and no pain, no redness, soft on palpation.
--- NOTE | 2016-08-22 22:12 | PROG NOTE ---
[address] [address] PROGRESS NOTE PATIENT: NIRANJAN BUSTOS : 1950 MR#: [id number] ADMIT: 08/21/2016 JOB ID: [id number] DATE: 08/22/2016. CARDIOLOGY PROGRESS NOTE--FOLLOW-UP INPATIENT CONSULTATION: EVALUATING PHYSICIAN: Cardiology: Noah Rutherford MD. PROBLEMS: 1. ACS--STEMI 2. CAD 3. Post PCI of Mid LAD in-stent occlusion (day two). 4. COPD exacerbation, moderately severe. SUBJECTIVE: I saw Ms. Bustos on Cardiology rounds this morning, now 24 hours after she presented with severe chest discomfort, STEMI on ECG; and she had primary percutaneous intervention of the occluded Mid LAD, which was a late in-stent stenosis. Today, this 65-year-old woman tells me she is doing well, and she feels much better. She is not having any specific problems, but has not been out of bed yet. She has had no cardiac symptoms except she continues to have the left upper retrosternal costochondral junction point tenderness that reproduces the chest pain she has been having. It has improved in the past day but still present. She is not being bothered by much shortness of breath despite the severity of her underlying COPD exacerbation on Exam. OBJECTIVE: EXAMINATION: Vital signs stable. Cardiac examination is unremarkable. Lungs: Her lung examination is remarkable for diffuse moderate to severe inspiratory and expiratory wheezes with diminished breath sounds overall. This is quite impressive pulmonary abnormality.At the same time, she is breathing only slightly heavily and does not look uncomfortable or significantly tachypneic. Extremities: The right lower extremity is intact at the catheterization site with a small ecchymosis; but no hematoma, pulsatile mass or bruit, and the pulse is intact, as it is distally in the right foot at the dorsalis pedis with perfusion capillary refill intact and the foot is warm--overall entirely satisfactory. ECG : This morning's EKG is likewise unremarkable. She has Q-waves V1 through V4 that are pre-existing; and likely related to her prior anterior infarct. The current acute changes are resolved. Chest X-Ray: Initially, the chest x-ray film was not available, but today I went to Radiology and was able to see the film. It is consistent with some COPD with large lung volumes and diffusely increased lung markings, but no evident pneumonia; and no heart failure. Laboratory: Labs are intact including creatinine is stable after contrast media. Echocardiogram: The echocardiogram shows moderately decreased global LV function with EF 35% to 40% and there are wall motion defects consistent with mid LAD occlusion both remote and recent, including anterior, apical, and distal inferior. Regarding her smoking and consideration of cor pulmonale, she does not have pulmonary hypertension, and her RV is intact; but she does have moderate TR. ASSESSMENT: 1. ST-elevation myocardial infarction; percutaneous coronary intervention; coronary artery disease: a. My impression is that overall she is stable and doing well from a cardiac point of view. I discussed the findings, impressions and ongoing management considerations of her and with the Hospitalist Team. b. Ongoing follow-up has confirmed our clinical impression that her severe persisting chest discomfort after the Intervention is related to the exquisite costochondral tenderness, but it is much improved. c. From a cardiac point of view, I discussed with her the critical importance of mandatory dual platelet anticoagulation and not to miss Plavix for any reason without immediate Cardiology consultation; and optimal medical therapy; and ongoing Cardiology follow-up, as well follow-up with her primary physician. 2. Chronic obstructive pulmonary disease: Although she seems moderately well compensated at the moment her respiratory status is impressive regarding COPD exacerbation with bronchospasm. I noted that she is on several inhalers and prednisone currently. RECOMMENDATIONS: 1. Resume ambulation carefully with the Nurse. She seems motivated. 2. OMT--Optimal medical therapy, including aspirin, Plavix, statin, beta-logan, and can add MATHEUS inhibitor in a staged manner. Let us know if metoprolol--now 12.5 mg b.i.d--; and reassess if it is felt to be problematic with her wheezing. Otherwise, it is important for her cardiac status a year after an infarct. 3. Your plan to optimize the COPD exacerbation and its physiologic stress; as well as ongoing consideration of the possibility of alcohol withdrawal. 4. We have discussed smoking cessation several times. LISSETTE
--- NOTE | 2016-08-22 22:17 | NUR ---
DCd leahy DCd pts leahy around 2034 pt able to void a small amount (150cc) around 2139.
[2016-08-23] VITALS (9 sets, daily range): BP systolic 96–110; BP diastolic 63–74; PULSE 87–112; RESP 18–20; O2SAT 93–100
[2016-08-23] MEDS: Albuterol-Ipratropium 3 mL Inhalation Solution NEB SCH ×5 (00:30→16:30)
--- NOTE | 2016-08-23 05:38 | NUR ---
no chest pain pt denies any CP, a pain in her right upper chest seems to be worse with coughing, pt declines any need for medication. up to [facility] independently, tele -ST 90-110s
[2016-08-23] MEDS: DULoxetine 30 mg DR Capsule PO SCH (08:22)
[2016-08-23] MEDS: Fluticasone 100 mCg Inhaler INHALATION SCH (08:23)
[2016-08-23] MEDS: Heparin 5,000 Unit/mL Inj SUBQ SCH (08:24)
[2016-08-23] MEDS: MethylprednisoLONE Sodium Succinate 62.5 mg/mL 2 mL Inj IVPUSH SCH (08:35)
--- NOTE | 2016-08-23 12:41 | PCM.DIMED ---
Discharge Instructions Date of Service Aug 23, 2016 Dates of Hospitalization Aug 21, 2016 at 09:39 Discharge Diagnosis Discharge Diagnosis 1. STEMI (heart attack) with LAD stenting 2. COPD exacerbation 3. Tobacco dependence 4. Muscular chest wall pain Diet Heart Healthy Activity Limited until seen by PCP Patient Instructions Cardiology in 2 weeks at [facility] PCP in 2 weeks Follow-up Provider: Brielle Adler PA-C Follow-up with PCP in: 2 weeks Willis Burgos MD Aug 23, 2016 12:41
[2016-08-23] MEDS ORDERED: METO25TA6 PO (12:46)
[2016-08-23] MEDS ORDERED: PRED50TA PO (12:46)
[2016-08-23] MEDS ORDERED: ASPI81TA3 PO (12:46)
[2016-08-23] MEDS ORDERED: CLOP75TA28 PO (12:46)
[2016-08-23] MEDS ORDERED: LORA-302 PO (12:46)
[2016-08-23] MEDS ORDERED: HYDR-4003 PO (12:46)
--- NOTE | 2016-08-23 14:38 | PCM.DC.MED ---
Discharge Summary Date of Service Aug 23, 2016 Dates of Hospitalization Date of Hospital Admission Aug 21, 2016 at 09:39 Date of Discharge: Aug 23, 2016 Providers: Admitting Physician: Noah Rutherford MD Primary Care Physician: Brielle Adler PA-C Attending Physician: Noah Rutherford MD Diagnosis at Time of Discharge Diagnosis at Time of Discharge 1. STEMI (heart attack) with LAD stenting 2. COPD exacerbation 3. Tobacco dependence 4. Muscular chest wall pain Consultations Interventional cardiology, Dr Rutherford. Procedures XRay, CTs & MRIs Chest x-ray is unremarkable ECG 12 Lead Normal sinus rhythm with inferior ST segments in the lateral leads, time is 10: 24 AM Cardiac Echo Impression LVEF of 3035%, with a flat apical distal wall. Invasive Procedures Cardiac cath on day of admit with stenting of LAD. See procedure note for further details. Brief History This is a 65-year-old female brought to the ER by ambulance for acute crushing chest pain which awoke her at 5:15 AM. The pain did not radiate to the neck or arm. She had associated nausea vomiting dyspnea and diaphoresis. In the ED she was identified with an acute STEMI and taken to the laboratory animal caretaker. Dr. Rutherford performed an acute coronary angiogram and ultimately stented a critical LAD lesion. Postprocedure she did have chest pain. This was more positional and did not increase with palpation. This was treated with Toradol. She denies a recent cough. Of note is a long history of alcohol abuse as well as smoking and tobacco dependence. She smokes 4-10 cigarettes a day. She notes about 4 beers in a days' time but not all days and denies a history of alcohol withdrawal symptoms. Hospital Course 1. STEMI. POA. The patient has undergone stenting of the LAD. Discussed the case with Dr. Rutherford. She will be placed on dual antiplatelet therapy, beta blockade as well as statin therapy. No changes to her medical regimen at this time. 2. Chest wall pain. POA. Feels this does not represent postprocedure ischemia. We will treat supportively with analgesics. This is improved substantially. 3. Tobacco dependence. POA. Patient declines a nicotine patch. 4. Possible alcohol abuse syndrome. POA. Denies withdrawal symptoms in the past. Follow clinically. No evidence of withdrawal issues. 5. Recent colonoscopy and polypectomy. POA. Stable. Follow for clinical evidence of rectal bleeding although there is no history of. 6. Possible acute COPD exacerbation. POA. Will continue Solu-Medrol and bronchodilator treatments for an additional day. 7. Mild debilitation. POA. Physical therapy evaluation today. Patient is full resuscitation discussed with patient today Length of stay is over 2 nights, inpatient status Hospital course: pt was admitted to [facility] as a STEMI and underwent cath and PCI of LAD. She had a moderate COPD exacerbation POA and was treated with bronchodilators and steroids with improvement of symptoms. She had minor muscular chest pain post procedure which increase with cough and palpation and resolved. She also had mild anxiety. She felt able to return home on the day of discharge. Exam Vital Signs (Last) Date Time Temp Pulse Resp B/P Pulse Ox O2 Delivery O2 Flow Rate FiO2 08/23/16 13:27 87 18 94 Room Air 08/23/16 08:26 36.5 110/72 08/22/16 07:40 1.00 Exam NAD, alert . Fluent speech Lungs clear except minor expiratory wheezing. CV RRR Abd Soft, NT No edema. Groin site okay. Test 08/21/16 06:25 08/21/16 20:27 08/22/16 05:10 08/23/16 04:44 Prothrombin Time 9.5sec (8.1-12.5) Prothromb Time International Ratio 0.89ratio Activated Partial Thromboplast Time 22.5sec (22.8-33.0) Magnesium Level 2.0mg/dL (1.6-2.6) Troponin T 0.049ug/L (0.0-0.011) Hold Urine Received (Received) Urine Opiates Screen Positive Urine Methadone Screen Negative Urine Barbiturates Screen Negative Urine Amphetamines Screen Negative Urine Benzodiazepines Screen Positive Urine Cocaine Metabolite Screen Negative Urine Cannabinoids Screen Negative White Blood Count 11.2th/mm3 (3.8-10.1) Red Blood Count 3.95mil/mm3 (3.90-5.20) Hemoglobin 13.8g/dL (12.0-15.6) Hematocrit 40.9% (35.0-46.0) Mean Corpuscular Volume 103.5fL (81-100) Mean Corpuscular Hemoglobin 34.9pg (27.0-35.0) Mean Corpuscular Hemoglobin Concent 33.7% (32.0-37.0) Red Cell Distribution Width 12.2% (12.3-15.4) Platelet Count 295bil/L (150-400) Neutrophils (%) (Auto) 93.5% (40-74) Lymphocytes (%) (Auto) 5.1% (14-46) Monocytes (%) (Auto) 1.1% (4-12) Eosinophils (%) (Auto) 0% (0-5) Basophils (%) (Auto) 0.1% (0-3) Total Bilirubin 0.8mg/dL (0.0-1.2) Aspartate Amino Transf (AST/SGOT) 259U/L (0-50) Alanine Aminotransferase (ALT/SGPT) 59U/L (0-32) Alkaline Phosphatase 85U/L (25-165) Total Protein 6.3g/dL (6.4-8.4) Albumin 3.6g/dL (3.4-5.0) Sodium Level 141mEq/L (134-144) Potassium Level 4.6mEq/L (3.5-5.2) Chloride Level 103mEq/L (97-108) Carbon Dioxide Level 25mmol/L (18-29) Blood Urea Nitrogen 12mg/dL (8-27) Creatinine 0.55mg/dL (0.57-1.00) Estimat Glomerular Filtration Rate 159mL/min (>59) Glucose Level 160mg/dL (60-99) Calcium Level 9.1mg/dL (8.5-10.1) Discharge Medications Discharge Medications ([Vit D]) 2,000 IU PO DAILY (Reported) Aspirin (Aspirin) 81 Mg Tablet 81 MG PO DAILY (Reported) Aspirin Chew (Aspirin Chew) 81 Mg Chew 81 MG PO DAILY Prescribed by: WILLIS LUJAN MD Atorvastatin (Lipitor) 40 Mg Tablet 40 MG PO HS (Reported) Beclomethasone Dipropionate (Qvar) 8.7 Gm Aer.w.adap 1 PUFF INHALATION BID ( Reported) Clopidogrel (Clopidogrel) 75 Mg Tablet 75 MG PO DAILY Prescribed by: WILLIS LUJAN MD Diltiazem ER (Diltiazem ER) 300 Mg Cap.er.24h 300 MG PO DAILY (Reported) Duloxetine (Duloxetine) 30 Mg Capsule.dr 30 MG PO DAILY (Reported) Metoprolol Tartrate (Metoprolol Tartrate) 25 Mg Tablet 12.5 MG PO BID Prescribed by: WILLIS LUJAN MD Prednisone (PredniSONE) 50 Mg Tablet 40 MG PO DAILY Prescribed by: WILLIS LUJAN MD Tiotropium Roberta (Spiriva) 18 Mcg Cap.w.dev 18 MCG IH DAILY (Reported) As needed Albuterol Sulfate (Proair Respiclick) 90 Mcg Aer.pow.ba 90 MCG IH PRN For Shortness of Breath (Reported) Hydrocodone-Acetaminophen 5-325 mg (Hydrocodone-Acetaminophen 5-325 mg) 1 Each Tablet 1 TABLET PO Q4H PRN PRN For Pain Prescribed by: WILLIS LUJAN MD Lorazepam (Ativan) 0.5 Mg Tablet 0.5 MG PO TID PRN PRN For Anxiety Prescribed by: WILLIS LUJAN MD Zolpidem (Ambien) 10 Mg Tablet 10 MG PO HS PRN PRN For Insomnia (Reported) Followup Plan Disposition: home Discharge Diet: Heart Healthy Discharge Activity: Limited until seen by PCP Patient Instructions Cardiology in 2 weeks at [facility] in 2 weeks Follow-up Provider: Brielle Adler PA-C Follow-up with PCP in: 2 weeks Cardiac Rehab: 2 weeks Time spent 40 minutes Willis Lujan MD Aug 23, 2016 14:38
[2016-08-23] MEDS ORDERED: MethylprednisoLONE Sodium Succinate 62.5 mg/mL 2 mL Inj IVPUSH SCH (16:00)
--- NOTE | 2016-08-23 16:58 | NUR ---
Respiratory Pt said she was discharging and did not want the Tx at this time.
--- NOTE | 2016-08-23 18:27 | NUR ---
Discharge Pt denies CP today, mild discomfort when coughing. VSS. Pt d/c'd home with daughter this afternoon, accompanied by NA-C to private vehicle. Pt declined questions post discharge education. IV x2 d/c'd in tact. All belonging sent with pt upon d/c.
== END 2016-08-23 18:30 | disposition home or self-care (01) | DRG 247 ==
LOC: SED 06:18 → SPI 06:45 → CCU 09:39 → PCC 16:04
PROVIDERS: ADMIT Internal Medicine Cardiovascular Disease; ATTEND Hospitalist
PROC: 027035Z Dilation of Coronary Artery, One Artery with Two Drug-eluting Intraluminal Devices, Percutaneous Approach (ICD-10-PCS; principal; 2016-08-21)
PROC: 4A023N7 Measurement of Cardiac Sampling and Pressure, Left Heart, Percutaneous Approach (ICD-10-PCS; 2016-08-21)
PROC: B2111ZZ Fluoroscopy of Multiple Coronary Arteries using Low Osmolar Contrast (ICD-10-PCS; 2016-08-21)
DX: I21.02 ST elevation (STEMI) myocardial infarction involving left anterior descending coronary artery (principal); J44.1 Chronic obstructive pulmonary disease with (acute) exacerbation; T82.855A Stenosis of coronary artery stent, initial encounter; F17.210 Nicotine dependence, cigarettes, uncomplicated; F10.10 Alcohol abuse, uncomplicated; I10 Essential (primary) hypertension; I25.10 Atherosclerotic heart disease of native coronary artery without angina pectoris